=== PATIENT | male | born 1945 | race Caucasian/White ===

== ENCOUNTER 2020-11-27 10:37 | Outpatient (RCR) | payer MEDICARE, OTHER, SELFPAY ==
[2020-11-27] MEDS: COVID-19 VACC, MRNA(PFIZER)/PF 30 MCG/0.3 ML SYRINGE IM (09:04)
[2020-12-18] MEDS: COVID-19 VACC, MRNA(PFIZER)/PF 30 MCG/0.3 ML SYRINGE IM (08:45)
== END 2021-03-03 23:59 ==
LOC: IMMUN 10:37
PROVIDERS: Referring Provider Family Medicine; Visit Provider Family Medicine
DX: Z23 Encounter for immunization (principal)
CPT/HCPCS: 0001A; 0002A; 91300